=== PATIENT | male | born 1970 | race Caucasian/White ===

== ENCOUNTER → 2016-12-25 | Outpatient (CLI) | payer SELFPAY | LOC: M OUTALCOH 08:52 | PROVIDERS: ATTEND Psychiatry & Neurology Psychiatry | DX: F11.20 Opioid dependence, uncomplicated (principal) ==

== ENCOUNTER 2017-01-11 14:00 | Outpatient (RCR) | payer SELFPAY | END 2017-01-13 | LOC: M OUTALCOH 14:00 | PROVIDERS: ATTEND Psychiatry & Neurology Psychiatry | DX: F11.20 Opioid dependence, uncomplicated (principal); F17.210 Nicotine dependence, cigarettes, uncomplicated ==

== ENCOUNTER 2017-01-16 16:00 | Outpatient (RCR) | payer MEDICAID, SELFPAY | END 2017-02-13 | LOC: M OUTALCOH 01-17 15:00 | DX: F11.20 Opioid dependence, uncomplicated (principal); F17.200 Nicotine dependence, unspecified, uncomplicated ==

== ENCOUNTER 2017-03-14 16:00 | Outpatient (RCR) | payer SELFPAY | END 2017-03-15 | LOC: M OUTALCOH 16:00 | PROVIDERS: ATTEND Psychiatry & Neurology Psychiatry | DX: F11.20 Opioid dependence, uncomplicated (principal); F17.200 Nicotine dependence, unspecified, uncomplicated ==

== ENCOUNTER 2017-03-19 15:06 | Outpatient (RCR) | payer SELFPAY | END 2017-04-15 | LOC: M OUTALCOH 03-21 15:00 | DX: F11.20 Opioid dependence, uncomplicated (principal); F17.200 Nicotine dependence, unspecified, uncomplicated ==

== ENCOUNTER 2017-04-17 09:03 | Outpatient (RCR) | payer MEDICAID, SELFPAY | END 2017-05-16 | LOC: M OUTALCOH 04-18 16:00 | DX: F11.20 Opioid dependence, uncomplicated (principal); F17.200 Nicotine dependence, unspecified, uncomplicated ==

== ENCOUNTER 2017-05-21 10:04 | Outpatient (RCR) | payer MEDICAID | END 2017-06-13 | LOC: M OUTALCOH 05-23 16:00 | DX: F11.20 Opioid dependence, uncomplicated (principal); F17.200 Nicotine dependence, unspecified, uncomplicated; F15.10 Other stimulant abuse, uncomplicated ==

== ENCOUNTER 2017-06-14 14:49 | Outpatient (RCR) | payer MEDICAID | END 2017-07-14 | LOC: M OUTALCOH 14:49 | DX: F11.20 Opioid dependence, uncomplicated (principal); F17.200 Nicotine dependence, unspecified, uncomplicated; F15.10 Other stimulant abuse, uncomplicated | CPT/HCPCS: 90834 ==

== ENCOUNTER 2017-07-16 11:32 | Outpatient (RCR) | payer MEDICAID | END 2017-08-13 | LOC: M OUTALCOH 11:32 | DX: F11.20 Opioid dependence, uncomplicated (principal); F17.200 Nicotine dependence, unspecified, uncomplicated; F15.10 Other stimulant abuse, uncomplicated ==

== ENCOUNTER 2017-08-17 14:51 | Outpatient (RCR) | payer MEDICAID | END 2017-09-13 | LOC: M OUTALCOH 08-24 11:00 | DX: F11.20 Opioid dependence, uncomplicated (principal); F17.200 Nicotine dependence, unspecified, uncomplicated; F15.10 Other stimulant abuse, uncomplicated ==

== ENCOUNTER 2017-09-14 13:05 | Outpatient (RCR) | payer MEDICAID | END 2017-10-13 | LOC: M OUTALCOH 13:05 | DX: F11.20 Opioid dependence, uncomplicated (principal); F15.10 Other stimulant abuse, uncomplicated; F17.200 Nicotine dependence, unspecified, uncomplicated ==

== ENCOUNTER 2017-10-26 09:00 | Outpatient (RCR) | payer MEDICAID | END 2017-11-13 | LOC: M OUTALCOH 09:00 | DX: F11.20 Opioid dependence, uncomplicated (principal); F17.200 Nicotine dependence, unspecified, uncomplicated; F15.10 Other stimulant abuse, uncomplicated ==

== ENCOUNTER 2017-12-28 10:32 | Outpatient (RCR) | payer MEDICAID | END 2018-01-13 | LOC: M OUTALCOH 01-02 16:00 | DX: F11.20 Opioid dependence, uncomplicated (principal); F17.200 Nicotine dependence, unspecified, uncomplicated; F15.10 Other stimulant abuse, uncomplicated ==

== ENCOUNTER 2018-01-23 16:00 | Outpatient (RCR) | payer MEDICAID | END 2018-02-13 | LOC: M OUTALCOH 01-30 16:00 | DX: F11.20 Opioid dependence, uncomplicated (principal); F17.200 Nicotine dependence, unspecified, uncomplicated; F15.10 Other stimulant abuse, uncomplicated ==

== ENCOUNTER 2018-02-20 16:00 | Outpatient (RCR) | payer MEDICAID | END 2018-03-15 | LOC: M OUTALCOH 02-27 16:00 | DX: F11.20 Opioid dependence, uncomplicated (principal); F17.200 Nicotine dependence, unspecified, uncomplicated; F15.10 Other stimulant abuse, uncomplicated ==

== ENCOUNTER 2018-04-12 09:00 | Outpatient (RCR) | payer MEDICAID | END 2018-04-15 | LOC: M OUTALCOH 09:00 | PROVIDERS: ATTEND Psychiatry & Neurology Psychiatry | DX: F11.20 Opioid dependence, uncomplicated (principal); F15.10 Other stimulant abuse, uncomplicated; F13.10 Sedative, hypnotic or anxiolytic abuse, uncomplicated; F14.10 Cocaine abuse, uncomplicated; F17.200 Nicotine dependence, unspecified, uncomplicated ==

== ENCOUNTER → 2018-05-06 | Outpatient (CLI) | payer MEDICAID | LOC: M OUTALCOH 08:23 | PROVIDERS: ATTEND Psychiatry & Neurology Psychiatry | DX: F11.20 Opioid dependence, uncomplicated (principal); F15.10 Other stimulant abuse, uncomplicated; F13.10 Sedative, hypnotic or anxiolytic abuse, uncomplicated; F14.10 Cocaine abuse, uncomplicated ==

== ENCOUNTER 2018-05-15 08:55 | Outpatient (RCR) | payer MEDICAID | END 2018-05-16 | LOC: M OUTALCOH 08:55 | PROVIDERS: ATTEND Psychiatry & Neurology Psychiatry | DX: F11.20 Opioid dependence, uncomplicated (principal); F15.10 Other stimulant abuse, uncomplicated; F13.10 Sedative, hypnotic or anxiolytic abuse, uncomplicated; F14.10 Cocaine abuse, uncomplicated; F17.200 Nicotine dependence, unspecified, uncomplicated ==

== ENCOUNTER → 2018-06-13 | Outpatient (RCR) | payer MEDICAID | LOC: M OUTALCOH 05-22 12:58 | PROVIDERS: ATTEND Psychiatry & Neurology Psychiatry | DX: F11.20 Opioid dependence, uncomplicated (principal); F15.10 Other stimulant abuse, uncomplicated; F13.10 Sedative, hypnotic or anxiolytic abuse, uncomplicated; F14.10 Cocaine abuse, uncomplicated; F17.200 Nicotine dependence, unspecified, uncomplicated ==

== ENCOUNTER 2018-07-11 16:00 | Outpatient (RCR) | payer MEDICAID | END 2018-07-14 | LOC: M OUTALCOH 16:00 | PROVIDERS: ATTEND Psychiatry & Neurology Psychiatry | DX: Z03.89 Encounter for observation for other suspected diseases and conditions ruled out (principal); F11.20 Opioid dependence, uncomplicated; F15.10 Other stimulant abuse, uncomplicated; F13.10 Sedative, hypnotic or anxiolytic abuse, uncomplicated; F14.10 Cocaine abuse, uncomplicated; F17.200 Nicotine dependence, unspecified, uncomplicated ==

== ENCOUNTER → 2018-08-13 | Outpatient (RCR) | payer MEDICAID | LOC: M OUTALCOH 07-15 10:50 | PROVIDERS: ATTEND Psychiatry & Neurology Psychiatry | DX: F11.20 Opioid dependence, uncomplicated (principal); F17.200 Nicotine dependence, unspecified, uncomplicated; F15.10 Other stimulant abuse, uncomplicated; F13.10 Sedative, hypnotic or anxiolytic abuse, uncomplicated; F14.10 Cocaine abuse, uncomplicated ==

== ENCOUNTER 2018-09-02 16:00 | Outpatient (RCR) | payer MEDICAID | END 2018-09-13 | LOC: M OUTALCOH 16:00 | PROVIDERS: ATTEND Psychiatry & Neurology Psychiatry | DX: F11.20 Opioid dependence, uncomplicated (principal); F17.200 Nicotine dependence, unspecified, uncomplicated; F15.10 Other stimulant abuse, uncomplicated; F13.10 Sedative, hypnotic or anxiolytic abuse, uncomplicated; F14.10 Cocaine abuse, uncomplicated ==

== ENCOUNTER 2018-10-09 12:00 | Outpatient (RCR) | payer MEDICAID | END 2018-10-13 | LOC: M OUTALCOH 12:00 | PROVIDERS: ATTEND Psychiatry & Neurology Psychiatry | DX: F11.20 Opioid dependence, uncomplicated (principal); F17.200 Nicotine dependence, unspecified, uncomplicated; F15.10 Other stimulant abuse, uncomplicated; F13.10 Sedative, hypnotic or anxiolytic abuse, uncomplicated; F14.10 Cocaine abuse, uncomplicated ==

== ENCOUNTER 2018-11-01 08:59 | Outpatient (RCR) | payer MEDICAID | END 2018-11-13 | LOC: M OUTALCOH 08:59 | PROVIDERS: ATTEND Psychiatry & Neurology Psychiatry | DX: F11.20 Opioid dependence, uncomplicated (principal); F13.10 Sedative, hypnotic or anxiolytic abuse, uncomplicated; F14.10 Cocaine abuse, uncomplicated; F15.10 Other stimulant abuse, uncomplicated; F17.200 Nicotine dependence, unspecified, uncomplicated ==

== ENCOUNTER → 2018-11-15 | Outpatient (CLI) | payer OTHER | LOC: M LAB 11:27 | PROVIDERS: ATTEND Psychiatry & Neurology Addiction Medicine | DX: F10.99 Alcohol use, unspecified with unspecified alcohol-induced disorder (principal) ==

== ENCOUNTER 2018-11-27 12:00 | Outpatient (RCR) | payer MEDICAID | END 2018-12-14 | LOC: M OUTALCOH 12:00 | PROVIDERS: ATTEND Psychiatry & Neurology Psychiatry | DX: F11.20 Opioid dependence, uncomplicated (principal); F14.10 Cocaine abuse, uncomplicated; F15.10 Other stimulant abuse, uncomplicated; F13.10 Sedative, hypnotic or anxiolytic abuse, uncomplicated; F17.200 Nicotine dependence, unspecified, uncomplicated ==

== ENCOUNTER 2020-05-12 03:21 | Emergency (ER) | payer MEDICAID, OTHER ==
[~2020-05-12] VITALS: Ht 180.3 cm; Wt 72.4 kg
[2020-05-12] MEDS ORDERED: IBUP80TA PO (04:07)
[2020-05-12] MEDS ORDERED: CLEO300C2 PO (04:07)
[2020-05-12] MEDS ORDERED: KETOROLAC 60MG 2ML VIAL IM ONE (04:15)
[2020-05-12] MEDS ORDERED: CLINDAMYCIN 150MG CAPSULE PO ONE (04:15)
[2020-05-12] MEDS ORDERED: BENZOCAINE 20% GEL 9GM TUBE (ANBESOL MAX STRENGTH) TOP ONE (04:15)
[2020-05-12 04:34] VITALS: BP 149/76
== END 2020-05-12 04:37 | disposition home or self-care (01) ==
LOC: M ED 03:21
DX: K08.89 Other specified disorders of teeth and supporting structures (principal); F17.210 Nicotine dependence, cigarettes, uncomplicated
CPT/HCPCS: 96372; 99283; J1885

== ENCOUNTER → 2020-06-14 | Outpatient (REF) | payer OTHER ==
[~2020-06-14] MED LIST: CLEO300C2 PO; IBUP80TA PO
[2020-06-14 21:14] LABS: BASO % 0.2 % (0.0-1.0); HEMATOCRIT 46.5 % (42.0-52.0); HEMOGLOBIN 15.3 g/dl (13.5-17.5); LYMPH # 1.2 10^3/uL (1.5-5.0); LYMPH % 26.5 % (24.0-44.0); MEAN CORPUSCULAR HEMOGLOBIN 30.8 pg (27.0-33.0); MEAN CORPUSCULAR HGB CONC 32.9 g/dl (32.0-36.5); MEAN CORPUSCULAR VOLUME 93.6 fl (80.0-96.0); MONO # 0.5 10^3/uL (0.0-0.8); NEUTROPHILS # 2.9 10^3/uL (1.5-8.5); NEUTROPHILS % 61.9 % (36.0-66.0); PLATELET COUNT, AUTOMATED 208 10^3/uL (150-450); RED BLOOD COUNT 4.97 10^6/uL (4.30-6.10); WHITE BLOOD COUNT 4.7 10^3/uL (4.0-10.0)
[2020-06-14 21:41] LABS: ALBUMIN 4.1 GM/DL (3.2-5.2); ALT/SGPT 25 U/L (12-78); BILIRUBIN,TOTAL 0.6 MG/DL (0.2-1.0); BLOOD UREA NITROGEN 10 MG/DL (7-18); CALCIUM LEVEL 8.8 MG/DL (8.5-10.1); CARBON DIOXIDE LEVEL 30 MEQ/L (21-32); CHLORIDE LEVEL 105 MEQ/L (98-107); CREATININE FOR GFR 0.81 MG/DL (0.70-1.30); GLOMERULAR FILTRATION RATE > 60.0 (>56); GLUCOSE, FASTING 82 MG/DL (70-100); POTASSIUM SERUM 4.4 MEQ/L (3.5-5.1); SODIUM LEVEL 138 MEQ/L (136-145); TOTAL PROTEIN 7.4 GM/DL (6.4-8.2)
[2020-06-14 21:42] LABS: PTH INTACT 43.3 PG/ML (18.5-88.0)
[2020-06-14 21:52] LABS: ERYTHROCYTE SEDIMENTATION RATE 4 mm/hr (0-20)
[2020-06-14 21:54] LABS: HEPATITIS B SURFACE ANTIGEN NEGATIVE (NEGATIVE)
[2020-06-14 22:20] LABS: HEPATITIS B CORE ANTIBODY IGM NEGATIVE (NEGATIVE); HEPATITIS C VIRUS ABY INDEX < 0.0 INDEX (<0.8)
[2020-06-14 22:22] LABS: HIV 1&2 SCREEN CENTAUR NEGATIVE (NEGATIVE)
[2020-06-14 22:23] LABS: HEPATITIS A ANTIBODY IGM NEGATIVE (NEGATIVE)
[2020-06-16 23:07] LABS: ANA (HEP2) Negative (.)
== END ==
LOC: M LAB REF 19:52
PROVIDERS: ATTEND Pediatrics
DX: K12.1 Other forms of stomatitis (principal)

== ENCOUNTER 2021-08-14 23:45 | Emergency (ER) | payer OTHER ==
[~2021-08-14] VITALS: Ht 162.6 cm; Wt 63.0 kg
[2021-08-14] MEDS ORDERED: NALOXONE INJ 0.4MG/1ML VIAL (J2310 PER 1MG) IM STA (23:50)
[2021-08-14] MEDS ORDERED: NALOXONE 2MG/2ML SYRINGE (J2310 PER 1MG) As Ordered ONE (23:51)
[2021-08-14] MEDS ORDERED: NALOXONE 2MG/2ML SYRINGE (J2310 PER 1MG) IM STA (23:51)
[2021-08-14] MEDS ORDERED: NALOXONE 2MG/2ML SYRINGE (J2310 PER 1MG) IV STA (23:54)
[2021-08-15 00:30] VITALS: BP 158/64
== END 2021-08-15 01:45 | disposition home or self-care (01) ==
LOC: M ED 23:45
DX: F11.10 Opioid abuse, uncomplicated (principal)
CPT/HCPCS: 96374; 99284; J2310

== ENCOUNTER → 2023-10-16 | Outpatient (CLI) | payer MEDICAID, OTHER, SELFPAY ==
[2023-10-16 11:04] LABS: INR 2.59; PROTHROMBIN TIME 26.8 SECONDS (12.5-14.5)
== END ==
LOC: M LAB 09:41
PROVIDERS: ATTEND Nurse Practitioner Adult Health
DX: Z51.81 Encounter for therapeutic drug level monitoring (principal); Z79.01 Long term (current) use of anticoagulants

== ENCOUNTER → 2023-10-23 | Outpatient (CLI) | payer MEDICAID ==
[2023-10-23 12:28] LABS: INR 1.97; PROTHROMBIN TIME 21.8 SECONDS (12.5-14.5)
== END ==
LOC: M LAB 11:36
PROVIDERS: ATTEND Nurse Practitioner Adult Health
DX: D68.61 Antiphospholipid syndrome (principal); Z79.01 Long term (current) use of anticoagulants

== ENCOUNTER → 2023-11-01 | Outpatient (CLI) | payer MEDICAID ==
[2023-11-01 18:13] LABS: INR 2.09; PROTHROMBIN TIME 22.8 SECONDS (12.5-14.5)
== END ==
LOC: M LAB 16:55
PROVIDERS: ATTEND Nurse Practitioner Family
DX: I63.9 Cerebral infarction, unspecified (principal)

== ENCOUNTER → 2023-11-08 | Outpatient (REF) | payer MEDICAID ==
[2023-11-08 17:08] LABS: INR 2.3; PROTHROMBIN TIME 24.4 SECONDS (12.5-14.5)
== END ==
LOC: M LAB REF 16:26
PROVIDERS: ATTEND Nurse Practitioner Family
DX: I63.9 Cerebral infarction, unspecified (principal)

== ENCOUNTER → 2023-11-15 | Outpatient (REF) | payer MEDICAID ==
[2023-11-15 13:06] LABS: INR 3.8
== END ==
LOC: M LAB REF 12:28
PROVIDERS: ATTEND Nurse Practitioner Family
DX: I63.9 Cerebral infarction, unspecified (principal)

== ENCOUNTER 2023-11-22 16:09 | Emergency (ER) | payer MEDICAID ==
[~2023-11-22 16:09] MED LIST changes: -ALBU8.5H INH; -AMIO200T49; -AMLO1TAB25; -AMOX500C PO; -ATOR80TA59; -BENZ200C70 PO; -METO1TAB32; -WARF4TAB52
[2023-11-22] MEDS ORDERED: AMIO200T49 (16:29)
[2023-11-22] MEDS ORDERED: WARF4TAB52 (16:29)
[2023-11-22] MEDS ORDERED: ATOR80TA59 (16:29)
[2023-11-22] MEDS ORDERED: METO1TAB32 (16:29)
[2023-11-22] MEDS ORDERED: AMLO1TAB25 (16:29)
[2023-11-22 20:31] LABS: BASO % 0.2 % (0.0-1.0); EOS % 0.2 % (0.0-3.0); HEMATOCRIT 45.5 % (42.0-52.0); HEMOGLOBIN 15.8 g/dl (13.5-17.5); LYMPH # 1.2 10^3/uL (1.5-5.0); LYMPH % 19.2 % (24.0-44.0); MEAN CORPUSCULAR HEMOGLOBIN 31.8 pg (27.0-33.0); MEAN CORPUSCULAR HGB CONC 34.7 g/dl (32.0-36.5); MEAN CORPUSCULAR VOLUME 91.5 fl (80.0-96.0); MONO # 0.6 10^3/uL (0.0-0.8); MONO % 10.6 % (2.0-8.0); NEUTROPHILS # 4.2 10^3/uL (1.5-8.5); NEUTROPHILS % 69.6 % (36.0-66.0); PLATELET COUNT, AUTOMATED 184 10^3/uL (150-450); RED BLOOD COUNT 4.97 10^6/uL (4.30-6.10)
[2023-11-22] MEDS ORDERED: ISOVUE-370 76% 100ML VIAL As Ordered ONE (20:37)
[2023-11-22 20:56] LABS: INR 2.04; PARTIAL THROMBOPLASTIN TIME 45.8 SECONDS (24.8-34.2); PROTHROMBIN TIME 22.4 SECONDS (12.5-14.5)
[2023-11-22 20:59] LABS: CK-MB VALUE MASS < 1.0 NG/ML (<3.6)
[2023-11-22 21:05] LABS: CPK CREATINE PHOSPHOKINASE 97 U/L (46-171); MB/CK RELATIVE INDEX 1.03 (< OR =4)
[2023-11-22] MEDS: WARFARIN SOD 3MG TAB PO ONE (21:36)
[2023-11-22] MEDS ORDERED: BENZ200C70 PO (22:28)
[2023-11-22] MEDS ORDERED: AMOX500C PO (22:28)
[2023-11-22] MEDS ORDERED: ALBU8.5H INH (22:28)
[2023-11-22 22:37] VITALS: BP 125/71
[2023-11-22 22:39] VITALS: TEMP 97.2; O2SAT 97
[2023-11-22] MEDS: AMOXICILLIN 500 MG CAP PO ONE (22:46)
[2023-11-22] MEDS: ACETAMINOPHEN 500 MG TAB PO ONE (22:46)
== END 2023-11-22 23:00 | disposition home or self-care (01) ==
LOC: M ED 16:09
DX: K04.7 Periapical abscess without sinus (principal); J06.9 Acute upper respiratory infection, unspecified; I10 Essential (primary) hypertension; Z86.73 Personal history of transient ischemic attack (TIA), and cerebral infarction without residual deficits; F17.200 Nicotine dependence, unspecified, uncomplicated
CPT/HCPCS: 71046; 71275; 80047; 82550; 82553; 84484; 85025; 85610; 85730; 87486; 87581; 87633; 87798; 93005; 99284; Q9967

== ENCOUNTER → 2023-11-22 | Outpatient (REF) | payer MEDICAID ==
[~2023-11-22] MED LIST changes: +ALBU8.5H INH; +AMIO200T49; +AMLO1TAB25; +AMOX500C PO; +ATOR80TA59; +BENZ200C70 PO; +METO1TAB32; +WARF4TAB52
[2023-11-22 12:46] LABS: INR 2.31; PROTHROMBIN TIME 24.6 SECONDS (12.5-14.5)
== END ==
LOC: M LAB REF 12:17
PROVIDERS: ATTEND Nurse Practitioner Family
DX: I63.9 Cerebral infarction, unspecified (principal)

== ENCOUNTER → 2023-11-30 | Outpatient (REF) | payer MEDICAID ==
[~2023-11-30] MED LIST changes: +ALBU8.5H INH; +AMIO200T49; +AMLO1TAB25; +AMOX500C PO; +ATOR80TA59; +BENZ200C70 PO; +METO1TAB32; +WARF4TAB52
[2023-11-30 12:37] LABS: INR 3.01; PROTHROMBIN TIME 30.1 SECONDS (12.5-14.5)
== END ==
LOC: M LAB REF 12:18
PROVIDERS: ATTEND Nurse Practitioner Family
DX: I63.9 Cerebral infarction, unspecified (principal)

== ENCOUNTER → 2023-12-06 | Outpatient (REF) | payer MEDICAID ==
[2023-12-06 16:28] LABS: INR 2.57; PROTHROMBIN TIME 26.6 SECONDS (12.5-14.5)
== END ==
LOC: M LAB REF 16:07
PROVIDERS: ATTEND Nurse Practitioner Family
DX: I63.9 Cerebral infarction, unspecified (principal)

== ENCOUNTER → 2023-12-13 | Outpatient (REF) | payer MEDICAID ==
[2023-12-13 16:26] LABS: INR 2.44; PROTHROMBIN TIME 25.6 SECONDS (12.5-14.5)
== END ==
LOC: M LAB REF 16:04
PROVIDERS: ATTEND Nurse Practitioner Family
DX: I63.9 Cerebral infarction, unspecified (principal)

== ENCOUNTER → 2023-12-20 | Outpatient (REF) | payer MEDICAID ==
[2023-12-20 12:49] LABS: INR 2.93; PROTHROMBIN TIME 29.5 SECONDS (12.5-14.5)
== END ==
LOC: M LAB REF 12:31
PROVIDERS: ATTEND Nurse Practitioner Family
DX: I63.9 Cerebral infarction, unspecified (principal)

== ENCOUNTER → 2023-12-27 | Outpatient (REF) | payer MEDICAID ==
[2023-12-27 12:41] LABS: PROTHROMBIN TIME 37.5 SECONDS (12.5-14.5)
== END ==
LOC: M LAB REF 12:19
PROVIDERS: ATTEND Nurse Practitioner Family
DX: I63.9 Cerebral infarction, unspecified (principal)

== ENCOUNTER → 2024-01-03 | Outpatient (REF) | payer MEDICAID ==
[2024-01-03 16:42] LABS: INR 1.37; PROTHROMBIN TIME 16.4 SECONDS (12.5-14.5)
== END ==
LOC: M LAB REF 16:08
PROVIDERS: ATTEND Nurse Practitioner Family
DX: I63.9 Cerebral infarction, unspecified (principal)

== ENCOUNTER → 2024-01-10 | Outpatient (REF) | payer MEDICAID ==
[2024-01-10 17:48] LABS: INR 1.99; PROTHROMBIN TIME 21.9 SECONDS (12.5-14.5)
== END ==
LOC: M LAB REF 16:11
PROVIDERS: ATTEND Nurse Practitioner Family
DX: I63.9 Cerebral infarction, unspecified (principal)

== ENCOUNTER → 2024-01-30 | Outpatient (CLI) | payer MEDICAID ==
[2024-01-30 11:57] LABS: INR 2.32; PROTHROMBIN TIME 24.6 SECONDS (12.5-14.5)
== END ==
LOC: M LAB 10:44
PROVIDERS: ATTEND Internal Medicine Rheumatology
DX: I63.9 Cerebral infarction, unspecified (principal); D68.61 Antiphospholipid syndrome

== ENCOUNTER → 2024-02-06 | Outpatient (CLI) | payer MEDICAID ==
[2024-02-06 11:33] LABS: INR 1.94; PROTHROMBIN TIME 21.5 SECONDS (12.5-14.5)
== END ==
LOC: M LAB 10:14
PROVIDERS: ATTEND Internal Medicine Rheumatology
DX: I63.9 Cerebral infarction, unspecified (principal); D68.61 Antiphospholipid syndrome

== ENCOUNTER → 2024-02-27 | Outpatient (CLI) | payer MEDICAID ==
[2024-02-27 12:03] LABS: INR 1.78; PROTHROMBIN TIME 20.9 SECONDS (12.5-14.5)
== END ==
LOC: M LAB 10:15
PROVIDERS: ATTEND Nurse Practitioner Adult Health
DX: D68.61 Antiphospholipid syndrome (principal)

== ENCOUNTER → 2024-03-05 | Outpatient (CLI) | payer MEDICAID ==
[2024-03-05 11:39] LABS: INR 2.01; PROTHROMBIN TIME 22.9 SECONDS (12.5-14.5)
== END ==
LOC: M LAB 10:08
PROVIDERS: ATTEND Nurse Practitioner Adult Health
DX: D68.61 Antiphospholipid syndrome (principal)

== ENCOUNTER → 2024-03-12 | Outpatient (CLI) | payer MEDICAID ==
[2024-03-12 11:21] LABS: INR 1.7; PROTHROMBIN TIME 20.1 SECONDS (12.5-14.5)
== END ==
LOC: M LAB 10:00
PROVIDERS: ATTEND Nurse Practitioner Adult Health
DX: D68.61 Antiphospholipid syndrome (principal)

== ENCOUNTER → 2024-04-02 | Outpatient (CLI) | payer MEDICAID ==
[2024-04-02 12:14] LABS: INR 1.57
== END ==
LOC: M LAB 10:29
PROVIDERS: ATTEND Internal Medicine Rheumatology
DX: I63.9 Cerebral infarction, unspecified (principal)

== ENCOUNTER → 2024-04-23 | Outpatient (CLI) | payer MEDICAID ==
[2024-04-23 11:09] LABS: INR 1.71; PROTHROMBIN TIME 20.3 SECONDS (12.5-14.5)
== END ==
LOC: M LAB 10:25
PROVIDERS: ATTEND Internal Medicine Rheumatology
DX: I63.9 Cerebral infarction, unspecified (principal)

== ENCOUNTER 2024-04-30 17:43 | Emergency (ER) | payer MEDICAID ==
[~2024-04-30] VITALS: Ht 177.8 cm; Wt 80.5 kg
[~2024-04-30 17:43] MED LIST changes: -FLOM0.4C39 PO
[2024-04-30 18:12] LABS: BASO % 0.1 % (0.0-1.0); HEMATOCRIT 45.7 % (42.0-52.0); HEMOGLOBIN 16.1 g/dl (13.5-17.5); LYMPH # 1.3 10^3/uL (1.5-5.0); LYMPH % 13.5 % (24.0-44.0); MEAN CORPUSCULAR HEMOGLOBIN 31.8 pg (27.0-33.0); MEAN CORPUSCULAR HGB CONC 35.2 g/dl (32.0-36.5); MEAN CORPUSCULAR VOLUME 90.3 fl (80.0-96.0); MONO # 0.8 10^3/uL (0.0-0.8); MONO % 8.7 % (2.0-8.0); NEUTROPHILS # 7.4 10^3/uL (1.5-8.5); NEUTROPHILS % 77.5 % (36.0-66.0); PLATELET COUNT, AUTOMATED 227 10^3/uL (150-450); RED BLOOD COUNT 5.06 10^6/uL (4.30-6.10); WHITE BLOOD COUNT 9.5 10^3/uL (4.0-10.0)
[2024-04-30 18:18] LABS: INR 1.84; PROTHROMBIN TIME 21.4 SECONDS (12.5-14.5)
[2024-04-30 18:30] LABS: LIPASE 29 U/L (12-53)
[2024-04-30 18:33] LABS: ALBUMIN 4.3 G/DL (3.2-5.2); ALKALINE PHOSPHATASE 93 U/L (40-129); ALT/SGPT 41 U/L (7.0-40); AST/SGOT 30 U/L (<34); BILIRUBIN,DIRECT 0.4 MG/DL (<0.4); BILIRUBIN,TOTAL 1.4 MG/DL (0.3-1.2); BLOOD UREA NITROGEN 12 MG/DL (9-23); CARBON DIOXIDE LEVEL 29 MMOL/L (20-31); CHLORIDE LEVEL 99 MMOL/L (98-107); CK-MB VALUE MASS 1.5 NG/ML (<3.6); CREATININE FOR GFR 0.85 MG/DL (0.70-1.30); GLOMERULAR FILTRATION RATE > 60.0 (>56); GLUCOSE, FASTING 128 MG/DL (60-100); POTASSIUM SERUM 3.7 MMOL/L (3.5-5.1); SODIUM LEVEL 142 MMOL/L (136-145); TOTAL PROTEIN 8.1 G/DL (5.7-8.2)
[2024-04-30 18:34] LABS: CPK CREATINE PHOSPHOKINASE 163 U/L (46-171); MB/CK RELATIVE INDEX 0.92 (< OR =4)
[2024-04-30 20:49] LABS: CK-MB VALUE MASS 1.5 NG/ML (<3.6)
[2024-04-30 20:51] LABS: MB/CK RELATIVE INDEX 1.05 (< OR =4)
[2024-04-30 21:41] LABS: KETONE, URINE AUTO RFX NEGATIVE (NEGATIVE); LEUKOCYTE ESTERASE UR AUTO RFX NEGATIVE (NEGATIVE); MUCUS, URINE RFX SMALL (NEGATIVE); NITRITE, URINE AUTO RFX NEGATIVE (NEGATIVE); RBC, URINE AUTO RFX 0 /HPF (0-3); SQUAM EPITHELIAL CELL UR AURFX 0 /HPF (0-6); WBC, URINE AUTO RFX 1 /HPF (0-3)
[2024-04-30] MEDS ORDERED: FLOM0.4C39 PO (21:52)
[2024-04-30 22:15] VITALS: BP 126/80
[2024-04-30 22:16] VITALS: TEMP 98.2; O2SAT 96
[2024-04-30] MEDS: TAMSULOSIN 0.4 MG CAP PO ONE (22:17)
== END 2024-04-30 22:34 | disposition home or self-care (01) ==
LOC: EDBD 17:43 → M ED 17:43
DX: R33.9 Retention of urine, unspecified (principal); F41.9 Anxiety disorder, unspecified; F17.200 Nicotine dependence, unspecified, uncomplicated; Z86.79 Personal history of other diseases of the circulatory system; Z79.52 Long term (current) use of systemic steroids; Z79.02 Long term (current) use of antithrombotics/antiplatelets; Z79.899 Other long term (current) drug therapy

== ENCOUNTER → 2024-04-30 | Outpatient (CLI) | payer MEDICAID ==
[~2024-04-30] MED LIST changes: +FLOM0.4C39 PO
[2024-04-30 11:12] LABS: INR 1.84; PROTHROMBIN TIME 21.4 SECONDS (12.5-14.5)
== END ==
LOC: M LAB 09:49
PROVIDERS: ATTEND Internal Medicine Rheumatology
DX: I63.9 Cerebral infarction, unspecified (principal)

== ENCOUNTER → 2024-05-14 | Outpatient (CLI) | payer MEDICAID ==
[~2024-05-14] MED LIST changes: +FLOM0.4C39 PO
[2024-05-14 11:26] LABS: INR 1.91
== END ==
LOC: M LAB 10:12
PROVIDERS: ATTEND Internal Medicine Rheumatology
DX: D68.61 Antiphospholipid syndrome (principal)

== ENCOUNTER → 2024-05-14 | Outpatient (CLI) | payer MEDICAID | LOC: M LAB 10:18 | PROVIDERS: ATTEND Nurse Practitioner Family | DX: Z12.5 Encounter for screening for malignant neoplasm of prostate (principal) ==

== ENCOUNTER → 2024-06-18 | Outpatient (CLI) | payer MEDICAID ==
[2024-06-18 11:37] LABS: INR 1.75; PROTHROMBIN TIME 20.6 SECONDS (12.5-14.5)
== END ==
LOC: M LAB 10:55
PROVIDERS: ATTEND Nurse Practitioner Adult Health
DX: D68.61 Antiphospholipid syndrome (principal); Z79.01 Long term (current) use of anticoagulants

== ENCOUNTER → 2024-07-10 | Outpatient (CLI) | payer MEDICAID ==
[2024-07-10 16:46] LABS: INR 1.84; PROTHROMBIN TIME 21.4 SECONDS (12.5-14.5)
== END ==
LOC: M LAB 16:07
PROVIDERS: ATTEND Nurse Practitioner Adult Health
DX: D68.61 Antiphospholipid syndrome (principal); Z79.01 Long term (current) use of anticoagulants

== ENCOUNTER → 2024-07-23 | Outpatient (CLI) | payer MEDICAID ==
[2024-07-23 13:46] LABS: INR 2.92; PROTHROMBIN TIME 30.4 SECONDS (12.5-14.5)
== END ==
LOC: M LAB 12:33
PROVIDERS: ATTEND Nurse Practitioner Adult Health
DX: D68.61 Antiphospholipid syndrome (principal); Z79.01 Long term (current) use of anticoagulants

== ENCOUNTER → 2024-07-23 | Outpatient (CLI) | payer MEDICAID ==
[2024-07-23 13:26] LABS: BASO % 0.5 % (0.0-1.0); EOS # 0.2 10^3/uL (0.0-0.5); EOS % 2.7 % (0.0-3.0); HEMATOCRIT 45.7 % (42.0-52.0); HEMOGLOBIN 15.4 g/dl (13.5-17.5); LYMPH # 1.2 10^3/uL (1.5-5.0); LYMPH % 19.4 % (24.0-44.0); MEAN CORPUSCULAR HEMOGLOBIN 30.3 pg (27.0-33.0); MEAN CORPUSCULAR HGB CONC 33.7 g/dl (32.0-36.5); MONO # 0.6 10^3/uL (0.0-0.8); NEUTROPHILS % 66.9 % (36.0-66.0); PLATELET COUNT, AUTOMATED 279 10^3/uL (150-450); RED BLOOD COUNT 5.08 10^6/uL (4.30-6.10)
[2024-07-23 14:09] LABS: ALBUMIN 3.7 G/DL (3.2-5.2); ALKALINE PHOSPHATASE 78 U/L (40-129); ALT/SGPT 25 U/L (7.0-40); AST/SGOT 14 U/L (<34); BILIRUBIN,TOTAL 0.7 MG/DL (0.3-1.2); BLOOD UREA NITROGEN 8 MG/DL (9-23); CALCIUM LEVEL 8.9 MG/DL (8.5-10.1); CARBON DIOXIDE LEVEL 32 MMOL/L (20-31); CHLORIDE LEVEL 101 MMOL/L (98-107); CHOLESTEROL LEVEL 243 MG/DL (<200); CHOLESTEROL RISK RATIO 7.23 (<5); CREATININE FOR GFR 0.82 MG/DL (0.70-1.30); GLOMERULAR FILTRATION RATE > 90.0 (>56); GLUCOSE, FASTING 105 MG/DL (60-100); HDL CHOLESTEROL 33.6 MG/DL (>40); LDL CHOLESTEROL 171.6 MG/DL (<100); NON-HDL-C 209.4 MG/DL; POTASSIUM SERUM 3.3 MMOL/L (3.5-5.1); SODIUM LEVEL 143 MMOL/L (136-145); TOTAL PROTEIN 7.4 G/DL (5.7-8.2); TRIGLYCERIDES LEVEL 189 MG/DL (<150)
== END ==
LOC: M LAB 12:50
PROVIDERS: ATTEND Nurse Practitioner Family
DX: I10 Essential (primary) hypertension (principal); E78.5 Hyperlipidemia, unspecified; J02.9 Acute pharyngitis, unspecified

== ENCOUNTER → 2024-08-07 | Outpatient (CLI) | payer MEDICAID ==
[~2024-08-07] MED LIST changes: -FLOM0.4C39 PO; +TAMS-18 PO
[2024-08-07 16:24] LABS: INR 1.52; PROTHROMBIN TIME 18.5 SECONDS (12.5-14.5)
== END ==
LOC: M LAB 15:48
PROVIDERS: ATTEND Pharmacist Pharmacist Clinician (PhC)/ Clinical Pharmacy Specialist
DX: I63.9 Cerebral infarction, unspecified (principal)

== ENCOUNTER → 2024-08-21 | Outpatient (CLI) | payer MEDICAID ==
[2024-08-21 13:51] LABS: INR 2.08; PROTHROMBIN TIME 23.5 SECONDS (12.5-14.5)
== END ==
LOC: M LAB 12:55
PROVIDERS: ATTEND Pharmacist Pharmacist Clinician (PhC)/ Clinical Pharmacy Specialist
DX: D68.61 Antiphospholipid syndrome (principal); I63.9 Cerebral infarction, unspecified

== ENCOUNTER → 2024-10-23 | Outpatient (CLI) | payer MEDICAID ==
[~2024-10-23] MED LIST changes: -AMIO200T49; +AMIO200T54
[2024-10-23 14:45] LABS: INR 2.08
[2024-10-23 15:00] LABS: CALCIUM LEVEL 8.6 MG/DL (8.5-10.1); CARBON DIOXIDE LEVEL 31 MMOL/L (20-31); CHLORIDE LEVEL 103 MMOL/L (98-107); CHOLESTEROL LEVEL 289 MG/DL (<200); CHOLESTEROL RISK RATIO 7.68 (<5); CREATININE FOR GFR 0.92 MG/DL (0.70-1.30); GLOMERULAR FILTRATION RATE > 90.0 (>56); LDL CHOLESTEROL 198.0 MG/DL (<100); NON-HDL-C 251.4 MG/DL; POTASSIUM SERUM 4.0 MMOL/L (3.5-5.1); SODIUM LEVEL 143 MMOL/L (136-145); TRIGLYCERIDES LEVEL 267 MG/DL (<150)
[2024-10-23 15:28] LABS: HIV 1&2 SCREEN NEGATIVE (NEGATIVE)
[2024-10-23 15:35] LABS: HEPATITIS C VIRUS ABY INDEX 0.10 INDEX (<0.8)
[2024-10-23 15:58] LABS: ESTIMATED AVERAGE GLUCOSE 114.0 MG/DL (60-110)
== END ==
LOC: M LAB 13:16
PROVIDERS: ATTEND Nurse Practitioner Family
DX: E87.6 Hypokalemia (principal); Z68.22 Body mass index [BMI] 22.0-22.9, adult; Z79.01 Long term (current) use of anticoagulants; Z11.9 Encounter for screening for infectious and parasitic diseases, unspecified

== ENCOUNTER → 2024-12-03 | Outpatient (CLI) | payer MEDICAID ==
[2024-12-03 13:43] LABS: INR 2.29
== END ==
LOC: M LAB 12:26
DX: I63.9 Cerebral infarction, unspecified (principal); Q21.12 Patent foramen ovale; D68.61 Antiphospholipid syndrome

== ENCOUNTER → 2025-02-17 | Outpatient (REF) | payer MEDICAID ==
[2025-02-17 16:46] LABS: ALT/SGPT 39.0 U/L (7.0-40); AST/SGOT 39.0 U/L (<34); CHOLESTEROL LEVEL 126.0 MG/DL (<200); CHOLESTEROL RISK RATIO 4.02 (<5); LDL CHOLESTEROL 75.3 MG/DL (<100); NON-HDL-C 94.7 MG/DL; TRIGLYCERIDES LEVEL 97.0 MG/DL (<150)
[2025-02-17 17:02] LABS: INR 2.18
== END ==
LOC: M LAB REF 16:17
PROVIDERS: ATTEND Nurse Practitioner Family
DX: E78.5 Hyperlipidemia, unspecified (principal); Z79.01 Long term (current) use of anticoagulants